=== PATIENT | female | born 1960 | race Caucasian/White ===

== ENCOUNTER 2024-03-11 22:27 | Inpatient (IN) | payer MEDICARE ==
[~2024-03-11] VITALS: Ht 154.9 cm; Wt 90.0 kg
[2024-03-11 23:07] LABS: Hematocrit 30.9 % (33.0-51.0); Hemoglobin 10.2 g/dL (11.5-16.0); Mean Corpuscular HGB 34.3 pg (26.0-34.0); Mean Corpuscular Volume 104 fL (80-100); Mean Platelet Volume 8.9 fL (9.1-12.4); Platelet Count 315 K/mm3 (150-400); RDW Coefficient Variation 13.4 % (11.7-14.2); RDW Standard Deviation 51.2 fL (35.1-46.3); Red Blood Cell Count 2.97 M/mm3 (3.80-5.20); White Blood Cell Count 8.14 K/mm3 (4.00-11.30)
[2024-03-11 23:27] LABS: BAND PERCENT MAN 4 % (0-8); BASOPHILS ABSOLUTE MAN 0.08 K/mm3 (0.00-0.23); BASOPHILS PERCENT MAN 1 % (0-2); EOSINOPHILS PERCENT MAN 0 % (0-6); LYMPHOCYTES ABSOLUTE MAN 0.73 K/mm3 (0.84-5.20); LYMPHOCYTES PERCENT MAN 9 % (21-46); METAMYELOCYTE ABSOLUTE MAN 0.16 K/mm3 (0.00-0.00); METAMYELOCYTE PERCENT MAN 2 % (0-0); MONOCYTES ABSOLUTE MAN 0.73 K/mm3 (0.16-1.47); MONOCYTES PERCENT MAN 9 % (4-13); MYELOCYTE ABSOLUTE MAN 0.08 K/mm3 (0.00-0.00); MYELOCYTE PERCENT MAN 1 % (0-0); NEUTROPHILS ABSOLUTE MAN 6.34 K/mm3 (1.96-9.15); SEG NEUTROPHILS PERCENT MAN 74 % (41-73); TOTAL CELLS COUNTED 100
[2024-03-11 23:31] LABS: Alanine Aminotransfer (ALT/SGP 90 U/L (12-78); Albumin, Blood 2.4 g/dL (3.4-5.0); Albumin/Globulin Ratio 0.7 (0.8-1.8); Alk Phos 80 U/L (50-136); Anion Gap 9 mmol/L (3-11); Aspartate Aminotrans (AST/SGOT 61 U/L (12-37); Bilirubin, Total 0.2 mg/dL (0.1-1.0); Blood Urea Nitrogen 19 mg/dL (8-24); Bun/Creatinine Ratio 16.8 (12.0-20.0); CO2, Blood 28 mmol/L (21-32); Calcium, Blood 8.7 mg/dL (8.5-10.1); Chloride, Blood 105 mmol/L (98-108); Creatinine, Blood 1.13 mg/dL (0.40-1.00); Globulin, Blood 3.6 g/dL (2.2-4.0); Glomerular Filtration Rate 55 (60-); Glucose, Blood 150 mg/dL (70-99); Potassium, Blood 3.8 mmol/L (3.5-5.5); Sodium, Blood 138 mmol/L (136-145)
[2024-03-12] VITALS (7 sets, daily range): BP systolic 104–118; BP diastolic 59–78
[2024-03-12 00:35] LABS: Source, Urine Clean Catch
[2024-03-12 00:45] LABS: Bilirubin, Urine Neg (Neg); Blood, Urine Neg (Neg); Glucose Qualitative, Urine 2+ (Neg); Ketones, Urine Neg (Neg); Leukocyte Esterase, Urine 1+ (Neg); Nitrite, Urine Neg (Neg); Protein, Urine Neg (Neg); Urobilinogen, Urine NORM (Normal)
[2024-03-12 00:56] LABS: Appearance, Urine Clear (Clear); Bacteria Rare /hpf; Color, Urine Pale Yellow (P-Yellow); Red Blood Cells, Urine Not Seen /hpf (0-2); Squamous Epithelial Cells Few /hpf (Few); White Blood Cells, Urine 0-2 /hpf (0-5)
[2024-03-12] MEDS ORDERED: Lactated Ringer's 1,000 ML IV SCH ×3 (02:05→10:35)
[2024-03-12] MEDS ORDERED: FentaNYL Citrate 50 MCG/ML 2 ML Injection IV PRN ×2 (02:40→06:20)
[2024-03-12] MEDS ORDERED: NS 1,000 ML IV SCH (02:40)
[2024-03-12] MEDS ORDERED: Ondansetron HCl 2 MG / ML 2ML Vial IV PRN (02:40)
[2024-03-12] MEDS ORDERED: FLU VACC TS2024-25(6MOS UP)/PF 45 MCG/0.5 ML SYRINGE IM ONE (02:45)
[2024-03-12] MEDS ORDERED: Meropenem 1,000 MG in NS 100 ML IV SCH (02:54)
[2024-03-12 02:58] LABS: CHOL/HDL RATIO 3.6; Cholesterol 152 mg/dL (50-200); HDL Cholesterol 42 mg/dL (>39); LDL/HDL RATIO 1.9; Low Density Lipoprotein Chol 81 mg/dL (0-110); Triglycerides 143 mg/dL (30-160); Very Low Density Lipoprot Chol 28 mg/dL (6-32)
[2024-03-12] MEDS ORDERED: Albumin (Human) 25gm/100ml 100 ML IV ONE (03:00)
[2024-03-12 04:58] LABS: BASOPHILS ABSOLUTE AUTO 0.06 K/mm3 (0.00-0.23); BASOPHILS PERCENT AUTO 1 % (0-2); EOSINOPHILS ABSOLUTE AUTO 0.13 K/mm3 (0.00-0.68); EOSINOPHILS PERCENT AUTO 2 % (0-6); Hematocrit 31.6 % (33.0-51.0); Hemoglobin 10.4 g/dL (11.5-16.0); IMMATURE GRAN PERCENT AUTO 5 % (0-1); LYMPHOCYTES ABSOLUTE AUTO 0.89 K/mm3 (0.84-5.20); LYMPHOCYTES PERCENT AUTO 11 % (21-46); MONOCYTES ABSOLUTE AUTO 0.65 K/mm3 (0.16-1.47); MONOCYTES PERCENT AUTO 8 % (4-13); Mean Corpuscular HGB 34.2 pg (26.0-34.0); Mean Corpuscular HGB Conc 32.9 g/dL (31.5-36.5); Mean Corpuscular Volume 104 fL (80-100); Mean Platelet Volume 8.7 fL (9.1-12.4); NEUTROPHILS ABSOLUTE AUTO 5.96 K/mm3 (1.96-9.15); NEUTROPHILS PERCENT AUTO 74 % (41-73); Platelet Count 296 K/mm3 (150-400); RDW Coefficient Variation 13.3 % (11.7-14.2); RDW Standard Deviation 50.4 fL (35.1-46.3); Red Blood Cell Count 3.04 M/mm3 (3.80-5.20); White Blood Cell Count 8.09 K/mm3 (4.00-11.30)
[2024-03-12] MEDS ORDERED: Ipratropium/Albuterol SulF 2.5-0.5MG/3 ML Amp INH PRN (05:15)
[2024-03-12 05:25] LABS: Albumin, Blood 2.4 g/dL (3.4-5.0); Albumin/Globulin Ratio 0.7 (0.8-1.8); Bilirubin, Total 0.2 mg/dL (0.1-1.0); Bun/Creatinine Ratio 13.3 (12.0-20.0); Calcium, Blood 8.5 mg/dL (8.5-10.1); Creatinine, Blood 1.05 mg/dL (0.40-1.00); Globulin, Blood 3.5 g/dL (2.2-4.0); Potassium, Blood 3.9 mmol/L (3.5-5.5); Total Protein, Blood 5.9 g/dL (6.4-8.2)
--- NOTE | 2024-03-12 06:22 | NUR ---
SHIFT SUMMARY PATIENT IS ALERT AND ORIENTED. PATIENT IS A RECENT ADMIT FROM ED. PATIENT HAS HAD NO ACUTE EVENTS THIS SHIFT. PATIENT HAS REQUIRED NO PAIN MEDS THIS SHIFT, MEDICATED IN ED. PATIENT HAS HAD NO COMPLAINTS OF SOB, NAUSEA OR VOMITTING THIS SHIFT. BED IN LOCKED AND LOWEST POSITION.
--- NOTE | 2024-03-12 07:00 | NUR ---
ASSUMED CARE OF PT- BEDSIDE REPORT COMPLETED WITH NIGHT RN. PT SLEEPING SOUNDLY AT THE TIME OF REPORT, RECIEVED A CALL FROM TELE PT HR AFIB IN THE 30'S. CALLED DR ARAUJO AND RECIEVED AN ORDER FOR AN EKG. LAPIDARY APPRENTICE COMPLETED EKG. CAME TO THE BEDSIDE AT THE TIME OF THE EKG.
--- NOTE | 2024-03-12 09:32 | NUR ---
CALLED DR BABB UNABLE TO REACH, CALLED DR ARAUJO- PT HR VINCENT DOWN TO [address] ARAUJO THE PT HAS A CC/O FEELING LIKE HER BODY IS "TOTALLY EXHAUSTED" SHE STATES SHE FEELS LIKE SHE HAS NO ENERGY. SHE FEELS DRAWN. EARLIER SHE HAD A RATE IN THE LOW 30'S SHE C/O HAVING TROUBLE BREATHING, FEELING LIKE HER CHEST WAS "TIGHT" AND DIFFICULT TO TAKE A DEEP BREATH. CAME TO EVALUATE THE PT AT THAT TIME. THERE IS A SAVED STRIP A 3.15 SECOND PAUSE SHOWING THE RATE AT 29. NOTIFIED, REQUESTED AA CARDIOLOGY CONSULT, NO NEW ORDERS AT THIS TIME.
--- NOTE | 2024-03-12 12:34 | NUR ---
CALLED [facility] TO REQUEST THE PT MEDICATION Hx BE FAXED OVER. THEY ARE PRINTING THE LIST NOW AND WILL FAX IT SOON.
[2024-03-12] MEDS ORDERED: BREO ELLIPTA 11 EAC1 INH (13:01)
[2024-03-12] MEDS ORDERED: Acetaminophen325 M1 PO (13:01)
[2024-03-12] MEDS ORDERED: BUPROPION XL150 M1 PO (13:02)
[2024-03-12] MEDS ORDERED: Cardizem LA240 MG PO (13:03)
[2024-03-12] MEDS ORDERED: BISA10S PR (13:04)
[2024-03-12] MEDS ORDERED: COMBIVENT RESPIM4 G1 INH (13:04)
[2024-03-12] MEDS ORDERED: FARXIGA5 MG PO (13:04)
[2024-03-12] MEDS ORDERED: Furosemide40 MG PO (13:05)
[2024-03-12] MEDS ORDERED: EUTHYROX25 MCG PO (13:06)
[2024-03-12] MEDS ORDERED: IPRAT-ALBUT 0.5-3 ML INH (13:06)
[2024-03-12] MEDS ORDERED: METO50ER PO (13:07)
[2024-03-12] MEDS ORDERED: MONT10T PO (13:07)
[2024-03-12] MEDS ORDERED: PREDNISONE5 M1 PO (13:08)
[2024-03-12] MEDS ORDERED: NICO21TP TOP (13:08)
[2024-03-12] MEDS ORDERED: Revatio20 MG PO (13:09)
[2024-03-12] MEDS ORDERED: WARF5 PO (13:10)
[2024-03-12] MEDS ORDERED: SPIRIVA RESPIMAT4 G3 INH (13:10)
--- NOTE | 2024-03-12 14:36 | NUR ---
MISSED 1000 DOSE OF MEROPENEM- THIS RN SCANNED THE MEDICATION AND HUNG IT AFTER VERIFYING WITH PHA THAT THE MED WAS OK TO RUN PIGGYBACK ON LR. PT C/O IV BEING TOO PAINFUL, MECHANICAL ADJUSTER PLACING A NEW IV, BREAK RN RELIEVED THIS RN. ONCE NEW IV ACCESS WAS ESTABLISHED BREAK RN STARTED THE INFUSION. ROLLER BALL CLAMP WAS NOT OPEN YET. MEDICATION DID NOT INFUSE.
[2024-03-12] MEDS ORDERED: Tiotropium Bromide 2.5 MCG/ACT MIST INHAL (10 ACT/4 GM) INH SCH (14:55)
[2024-03-12 17:11] LABS: International Normalized Ratio 1.52; Prothrombin Time Results 15.8 Sec (9.7-11.5)
[2024-03-12] MEDS ORDERED: Warfarin Sodium 5 MG Tab PO ONE (18:00)
[2024-03-12] MEDS ORDERED: Diltiazem HCl 180 MG Cap.CD PO SCH (18:00)
--- NOTE | 2024-03-12 18:26 | NUR ---
Shift Summary Assumed care of patient at approx 1415, transported from [facility]. Pt 1 person assist to bed. Alert, oriented x4; calm and cooperative with care. Pt reporting pain 6/10 in RUQ/Epigastric, medicated x2 with fentanyl, pt expressed conern with taking fentanyl, educated pt difference between medical grade and other fentanyls. Pt reports SOB with exertion, spo2 >90% on ra, breathing even and unlabored at rest. Abd distended, tender on palp, liquid bm per patient this evening. Tele afib 80-100's since transfer, no bradycardia or pauses noted. Pt used to wear cpap, notified Dr Shay, new orders per . Discussed cardizem order with Dr Luna, holding 360 mg this evening, new orders to give [address] Luna. No other acute changes noted. Will continue to monitor.
[2024-03-12] MEDS ORDERED: dilTIAZem HCL 240 MG CAP.CD PO ONE (19:20)
[2024-03-12] MEDS ORDERED: Montelukast Sodium 10 MG Tab PO SCH (21:00)
--- NOTE | 2024-03-12 23:50 | NUR ---
ASSUMPTION OF CARE THIS RN ASSUMED CARE OF PATIENT AT 1900. PT A&O X4. ABLE TO MAKE NEEDS KNOWN. DYSPNEA WITH EXERTION NOTED. X2 BAGS OF LR INFUSED PER EMAR. AFIB WITH HR 70-90. BP STABLE. DENIES CHEST PAIN/PRESSURE. ON RA WITH SPO2 >92%. CPAP FOR NOC SET UP BY RT. SBA TO BATHROOM. CALLING APPROPRIATELY. BED IN LOWEST POSITION AND CALL LIGHT WITHIN REACH.
[2024-03-13] VITALS (7 sets, daily range): BP systolic 106–127; BP diastolic 57–78
[2024-03-13 04:22] LABS: Hematocrit 31.4 % (33.0-51.0); Hemoglobin 10.1 g/dL (11.5-16.0); Mean Corpuscular HGB 33.9 pg (26.0-34.0); Mean Corpuscular HGB Conc 32.2 g/dL (31.5-36.5); Mean Corpuscular Volume 105 fL (80-100); Mean Platelet Volume 9.2 fL (9.1-12.4); Platelet Count 318 K/mm3 (150-400); RDW Coefficient Variation 13.6 % (11.7-14.2); RDW Standard Deviation 52.4 fL (35.1-46.3); Red Blood Cell Count 2.98 M/mm3 (3.80-5.20); White Blood Cell Count 6.75 K/mm3 (4.00-11.30)
[2024-03-13 04:43] LABS: Albumin, Blood 2.6 g/dL (3.4-5.0); Albumin/Globulin Ratio 0.8 (0.8-1.8); Bilirubin, Total 0.3 mg/dL (0.1-1.0); Bun/Creatinine Ratio 8.3 (12.0-20.0); Calcium, Blood 8.5 mg/dL (8.5-10.1); Creatinine, Blood 0.96 mg/dL (0.40-1.00); Globulin, Blood 3.1 g/dL (2.2-4.0); International Normalized Ratio 1.44; Potassium, Blood 4.1 mmol/L (3.5-5.5); Total Protein, Blood 5.7 g/dL (6.4-8.2)
--- NOTE | 2024-03-13 04:53 | NUR ---
SHIFT SUMMARY SEE PREVIOUS NOTE. NO ACUTE CHANGES OVERNIGHT. PT WEARING CPAP FOR SLEEP. NO PAUSES NOTED ON TELE. AFIB WITH BBB, HR 70-90'S. BP STABLE. DENIED PAIN DURING THIS SHIFT AND WITH CLEAR LIQUID DIET. USING BSC FOR VOIDING. CALLING APPROPRIATELY. BED IN LOWEST POSITION AND CALL LIGHT WITHIN REACH. THIS RN WILL REPORT TO ONCOMING DAYSHIFT RN.
[2024-03-13 05:02] LABS: BAND PERCENT MAN 3 % (0-8); BASOPHILS PERCENT MAN 0 % (0-2); EOSINOPHILS ABSOLUTE MAN 0.06 K/mm3 (0.00-0.68); EOSINOPHILS PERCENT MAN 1 % (0-6); LYMPHOCYTES ABSOLUTE MAN 1.14 K/mm3 (0.84-5.20); LYMPHOCYTES PERCENT MAN 17 % (21-46); METAMYELOCYTE ABSOLUTE MAN 0.06 K/mm3 (0.00-0.00); METAMYELOCYTE PERCENT MAN 1 % (0-0); MONOCYTES ABSOLUTE MAN 0.54 K/mm3 (0.16-1.47); MONOCYTES PERCENT MAN 8 % (4-13); MYELOCYTE ABSOLUTE MAN 0.13 K/mm3 (0.00-0.00); MYELOCYTE PERCENT MAN 2 % (0-0); NEUTROPHILS ABSOLUTE MAN 4.79 K/mm3 (1.96-9.15); SEG NEUTROPHILS PERCENT MAN 68 % (41-73); TOTAL CELLS COUNTED 100
[2024-03-13] MEDS ORDERED: Levothyroxine Sodium 0.025 MG Tab PO SCH (06:00)
[2024-03-13] MEDS ORDERED: Metoprolol Succinate 50 MG TABCR PO SCH (09:00)
[2024-03-13] MEDS ORDERED: BREO ELLIPTA INH SCH (09:00)
[2024-03-13] MEDS ORDERED: Nicotine 21 MG PATCH TOP SCH (09:00)
[2024-03-13] MEDS ORDERED: buPROPion HCL 150 MG TAB.SR.12H PO SCH (09:00)
[2024-03-13] MEDS ORDERED: Miconazole 2% Vaginal Cream 45 GM VAG SCH (10:00)
[2024-03-13] MEDS ORDERED: Sildenafil Citrate 20 MG Tab PO SCH (10:15)
[2024-03-13] MEDS ORDERED: Acetaminophen 325 MG TABLET PO PRN (11:00)
[2024-03-13] MEDS ORDERED: Magnesium Hydroxide Conc 10 ML UDC PO PRN (11:00)
[2024-03-13] MEDS ORDERED: Bisacodyl 10 MG Supp PR PRN (11:00)
[2024-03-13] MEDS ORDERED: Insulin Human Lispro 100 Units/ML 3ML Syringe SC SCH (11:30)
[2024-03-13] MEDS ORDERED: Furosemide 40 MG Tab PO SCH (12:00)
[2024-03-13] MEDS ORDERED: Warfarin Sodium 5 MG Tab PO ONE (18:00)
--- NOTE | 2024-03-13 18:14 | NUR ---
SHIFT SUMMARY A&O X4, ABLE TO MAKE NEEDS KNOWN, OBEYS COMMANDS, SBA TO BRP OR BSC, GENERALIZED WEAKNESS. CONTINUOUS SPO2, SPO2 GREATER THAN 95% ON RA, PT REPORTS SOB THAT WORSENS WITH ACTIVITY, LUNGS SOUND CLEAR AND TIGHT T/O WITH EXPRATORY WHEEZE/RESTARTED HOME MEDICATION PER ORDERS. HR 90-100 S, DENIES CHEST P/P, DID FEEL LIKE HER HEART WAS RACING DURING BRIEF MOMENT SHORTLY AFTER BREAKFAST BUT QUICKLY RESOLVED, ALL VS STABLE, MD MADE AWARE, MILD BLE EDEMA. PT TOLERATING CURRENT DIET WELL, REPORTING FEELINGS OF DISTENTION TO ABD, DENIES FEELINGS OF CONSTIPATION, REPORTS PAIN AND TENDERNESS TO RIGHT UPPER AND LOWER ABD QUADRANT WITH THE UPPER BEING THE WORSET/ MEDICATED PER ORDERS, HAD BM THIS SHIFT. VOIDING INTO BSC, YELLOW URINE, PT DOES REPORT URGENCY WITH VOIDING. REDNESS TO BLE ANKLES/TOES, PT REPORTS THAT NORMAL FOR HER. DR. BERNARDO ROUNDED ON PT THIS AM DR. BERNARDO CALLED BY THIS RN @ 2073 WITH PT REPORTING FEELINGS OF INCREASED THIRST/TREMORS/WEANKESS/DRY EYES/ CBG OF 230/ INCREASED SOB WITH O2 GREATER THAN 95%/ ITCHING FROM TED AREA, NEW ORDERS PLACED. DR. BERNARDO CALLED BY THIS RN @ 1421 FOR PT REQUEST TO RESTART THEIR WATER PILL THEY FELT THEIR LEGS BECOMING MORE SWOLLEN , NEW ORDERS PLACED BY . DR. GTZ TO BEDSIDE THIS AM.
[2024-03-13] MEDS ORDERED: Docusate Sodium 100 MG Cap PO SCH (21:00)
[2024-03-13] MEDS ORDERED: Sennosides 8.6 MG Tab PO SCH (21:00)
[2024-03-13] MEDS ORDERED: dilTIAZem HCL 240 MG CAP.CD PO SCH (21:00)
[2024-03-14] VITALS (7 sets, daily range): BP systolic 93–121; BP diastolic 44–77
[2024-03-14 03:58] LABS: Hematocrit 31.4 % (33.0-51.0); Hemoglobin 10.1 g/dL (11.5-16.0); Mean Corpuscular HGB 33.7 pg (26.0-34.0); Mean Corpuscular HGB Conc 32.2 g/dL (31.5-36.5); Mean Corpuscular Volume 105 fL (80-100); Mean Platelet Volume 8.4 fL (9.1-12.4); Platelet Count 322 K/mm3 (150-400); RDW Coefficient Variation 13.4 % (11.7-14.2); RDW Standard Deviation 51.5 fL (35.1-46.3); White Blood Cell Count 5.84 K/mm3 (4.00-11.30)
[2024-03-14 04:17] LABS: International Normalized Ratio 1.66; Prothrombin Time Results 17.1 Sec (9.7-11.5)
[2024-03-14 04:18] LABS: Albumin, Blood 2.7 g/dL (3.4-5.0); Albumin/Globulin Ratio 0.8 (0.8-1.8); Bilirubin, Total 0.3 mg/dL (0.1-1.0); Calcium, Blood 9.2 mg/dL (8.5-10.1); Creatinine, Blood 1.18 mg/dL (0.40-1.00); Globulin, Blood 3.2 g/dL (2.2-4.0); Magnesium, Blood 1.8 mg/dL (1.6-2.4); Phosphorus, Blood 3.6 mg/dL (2.5-4.9); Potassium, Blood 4.5 mmol/L (3.5-5.5); Total Protein, Blood 5.9 g/dL (6.4-8.2)
[2024-03-14 04:19] LABS: BAND PERCENT MAN 4 % (0-8); BASOPHILS ABSOLUTE MAN 0.11 K/mm3 (0.00-0.23); BASOPHILS PERCENT MAN 2 % (0-2); EOSINOPHILS PERCENT MAN 0 % (0-6); LYMPHOCYTES ABSOLUTE MAN 0.99 K/mm3 (0.84-5.20); LYMPHOCYTES PERCENT MAN 17 % (21-46); MONOCYTES ABSOLUTE MAN 0.23 K/mm3 (0.16-1.47); MONOCYTES PERCENT MAN 4 % (4-13); MYELOCYTE ABSOLUTE MAN 0.29 K/mm3 (0.00-0.00); MYELOCYTE PERCENT MAN 5 % (0-0); SEG NEUTROPHILS PERCENT MAN 68 % (41-73); TOTAL CELLS COUNTED 100
--- NOTE | 2024-03-14 04:54 | NUR ---
SHIFT SUMMARY. SHIFT HAS BEEN UNREMARKABLE. PT AOX4, PLEASANT, COOPERATIVE, ABLE TO MAKE NEEDS KNOWN. HAS BEEN ABLE TO REST COMFORTABLY THROUGHOUT MOST OF SHIFT. HAS WORN CPAP WHILE SLEEPING THROUGHOUT MOST OF SHIFT. PAIN HAS BEEN ADEQUATELY MANAGED VIA EMAR. PT OCCASIONALLY REPORTS SOB WITH MOVEMENT OR TRANSFER BUT OVERALL HAS DONE WELL WITH SATS MAINTAINING >90%. CONTINUES TO RUN AFIB ON TELE. STEADY 1PA TRANSFER TO BATHROOM. BED LOCKED IN LOWEST POSITION. CALL LIGHT LEFT WITHIN REACH. CONTINUING TO MONITOR.
[2024-03-14] MEDS ORDERED: Polyethylene Glycol 3350 17 gm PO SCH (09:00)
[2024-03-14] MEDS ORDERED: Furosemide 40 MG Tab PO SCH (09:00)
[2024-03-14] MEDS ORDERED: Acetaminophen 325 MG TABLET PO PRN (11:35)
[2024-03-14] MEDS ORDERED: HYDROcodone 5-APAP 325 TAB PO PRN ×2 (11:35→17:15)
[2024-03-14 13:43] LABS: Bun/Creatinine Ratio 9.5 (12.0-20.0); Calcium, Blood 8.6 mg/dL (8.5-10.1); Creatinine, Blood 1.37 mg/dL (0.40-1.00); Potassium, Blood 4.6 mmol/L (3.5-5.5)
[2024-03-14] MEDS ORDERED: Warfarin Sodium 7.5 MG Tab PO ONE (18:00)
--- NOTE | 2024-03-14 18:12 | NUR ---
SUMMARY- PT A/O X4, INDEPENDANT TO BATHROOM, STEADY ON FEET. PT HAS INTERMITTANT RUQ ABD PAIN DESCRIBED DEEP PRESURE. FENT IV EFFECTIVE. CHANGED TO NORCO 5MG WITH GOOD EFFECT. PT REQUIRED DOSE BEFORE 6 HOURS, CALLED DR MEDINA AND CHANGED FREQ Q4. TELE A FIB THIS AM 80-90'S. AFIBRILE, LUNGS CLEAR, OCC WHEEZE. ROUTINE NEB TX HELPFUL. MILD DYSPNEA WITH ACTIVITY WHICH LIMITS ACTIVITY. PHYSICAL THERAPY ASSESSED PT AND MADE RECOMMENDATIONS. BP MARGIONALLY LOWER THIS PM, DR ARAUJO MADE ADJUSTMENTS AND DC'D LASIX AND 500ML LR ORDER. PT STATES OCC SHE FEELS A WAVE OF FEELING "UNWELL, RACING HEART AND VERY THIRSTY" STATED THIS SENSATION CAME OVER HER BEFORE DINNER. BUT HAS SUBSIDED. BLOOD SUGARS AC/HS WITH SSI COVERAGE BREAKFAST AND LUNCH. PT TOLERATING FOOD AND FLUID. DENIES NAUSEA, DENIES FOOD MAKES ANY DIFFERENCE IN PAIN OCCURANCE. WILL REPORT TO BENITA SCHAEFER.
[2024-03-14] MEDS ORDERED: Lactated Ringer's 500 ML IV SCH (18:30)
--- NOTE | 2024-03-14 23:02 | NUR ---
TRANSFER PT TRANSFERED TO ROOM 305. REPORT GIVEN TO JESUS. PT A/O X4 AND ABLE TO MAKE HER NEEDS KNOWN. ALL BELONGINGS SENT WITH PT. SPO2 >95% ON RA. TELE SHOWS AFIB WITH RATE 70-80'S. PRN NORCO GIVEN FOR ABD PAIN. AMBULATING INDEPENDENTLY IN ROOM.
--- NOTE | 2024-03-14 23:19 | NUR ---
PT ARRIVED TO MEDICAL FLOOR VIA BED IN STABLE CONDITION. REPORTS RUQ ABD PAIN OF 4-5/10, JUST RECIEVED PAIN MEDS FROM COUNSELING CENTER MANAGER. DENIES NEED FOR ANYTHING ELSE AT THIS TIME. BS WAS 181. TELE AFIB 80'S. AGREE WITH PREVIOUS NURSES ASSESSMENT. NO OTHER APPARENT SIGNS OF DISTRESS. CALL LIGHT IS IN REACH.
--- NOTE | 2024-03-15 00:44 | NUR ---
0030 PT LYING IN BED, EYES CLOSED, APPEARS TO BE RESTING. BREATHING IS EVEN, UNLABORED. CPAP IS IN PLACE. CONT. BIOX IS ON. NO APPARENT SIGNS OF DISTRESS. CALL LIGHT IS IN REACH.
[2024-03-15 03:55] VITALS: BP 93/60
--- NOTE | 2024-03-15 04:55 | NUR ---
0230 PT LYING IN BED, EYES CLOSED, APPEARS TO BE RESTING. BREATHING IS EVEN, UNLABORED. NO APPARENT SIGNS OF DISTRESS. CPAP IN PLACE, CONT. BIOX IS ON. CALL LIGHT IS IN REACH.
--- NOTE | 2024-03-15 04:56 | NUR ---
PT IS AAO X 4, ON RA. USES CPAP AT NIGHT. REPORTS RUQ ABD PAIN, GOT NORCO. DENIED NAUSEA. LAST BS 181. TELE AFIB 80'S. REPORTS SOB THAT INCREASES WITH EXERTION, ON RA AT 95%.
--- NOTE | 2024-03-15 04:56 | NUR ---
0430 PT UP TO BATHROOM. DENIES NEED FOR ANYTHING AT THIS TIME. NO APPARENT SIGNS OF DISTRESS. CALL LIGHT IN BATHROOM IN REACH.
[2024-03-15 05:13] LABS: International Normalized Ratio 2.68; Prothrombin Time Results 26.7 Sec (9.7-11.5)
[2024-03-15 05:18] LABS: Bun/Creatinine Ratio 12.1 (12.0-20.0); Calcium, Blood 8.5 mg/dL (8.5-10.1); Creatinine, Blood 1.32 mg/dL (0.40-1.00); Potassium, Blood 4.5 mmol/L (3.5-5.5)
--- NOTE | 2024-03-15 06:15 | NUR ---
0530 PT LYING IN BED, APPEARS TO BE RESTING. WAKES EASILY TO VERBAL STIMULI. SILVANO EDMOND ASSISTED BY GIVING THE PT HER 0600 MED, PT NOT HAPPY TO BE WOKEN UP. NO OTHER APPARENT SIGNS OF DISTRESS. CALL LIGHT IS IN REACH. NO OTHER CHANGES THIS SHIFT.
[2024-03-15 07:34] VITALS: BP 103/60
--- NOTE | 2024-03-15 07:47 | NUR ---
AM NOTE ASSUMED CARE OF PATIENT AT APPROX. 0700. PATIENT IN BED WATCHING TV. PATIENT EAGER TO GO HOME, HOPES IT WILL BE TODAY. PATIENT IS A&OX4. PATIENT IS IND/SBA IN THE ROOM. CALL LIGHT IN REACH.
[2024-03-15 10:24] VITALS: BP 99/67
[2024-03-15] MEDS ORDERED: Empagliflozin 10 MG TAB PO SCH (11:00)
[2024-03-15 13:23] LABS: Bun/Creatinine Ratio 14.5 (12.0-20.0); Calcium, Blood 8.9 mg/dL (8.5-10.1); Creatinine, Blood 1.1 mg/dL (0.40-1.00); Potassium, Blood 4.3 mmol/L (3.5-5.5)
--- NOTE | 2024-03-15 14:10 | NUR ---
UPDATE PATIENT ENCOURAGED TO BE UP IN A CHAIR FOR MEALS. PATIENT IS IND IN THE ROOM. PATIENT STARTED ON JARDIANCE, EDUCATION DONE WITH PATIENT ABOUT NEW MEDICATION. PATIENT EATING AND DRINKING WELL. PATIENT EAGER TO GO HOME.
[2024-03-15 14:38] VITALS: BP 114/69
[2024-03-15] MEDS ORDERED: Furosemide 40 MG Tab PO SCH (16:30)
[2024-03-15 16:46] VITALS: BP 105/73
--- NOTE | 2024-03-15 17:11 | NUR ---
UPDATE PATIENT REPORTED URGENCY WHEN ATTEMPTING TO URINATE. PATIENT ALSO REPORTS GENERAL FEELING OF UNWELL. VITALS TAKEN, WNL. BLOOD SUGAR 187. DR. ALVA NOTIFIED, ORDER FOR BLADDER SCAN AND UA. BLADDER SCAN NEGATIVE FOR RETENTION. PATIENT IND IN ROOM. NEW HAT PLACED IN BATHROOM AND PATIENT INSTRUCTED FOR NEED FOR URINE SAMPLE. IN ROOM. ORDER FOR MARIA DEL ROSARIO HOSE. THIS RN PLACED MARIA DEL ROSARIO HOSE ON PATIENT.
[2024-03-15] MEDS ORDERED: PredniSONE 20 MG Tab PO SCH (18:00)
[2024-03-15] MEDS ORDERED: Warfarin Sodium 5 MG Tab PO SCH (18:00)
[2024-03-15] MEDS ORDERED: Apixaban 5 MG Tab PO SCH (18:00)
--- NOTE | 2024-03-15 18:11 | NUR ---
TAKING OVER PT CARE TILL END OF SHIFT. NO CHANGES WITH PT
[2024-03-15 19:43] VITALS: BP 118/68
[2024-03-16 02:05] VITALS: BP 103/70
--- NOTE | 2024-03-16 04:17 | NUR ---
SHIFT SUMMARY NO ACUTE EVENTS DURING THIS SHIFT. UA UNCOLLECTED. HAT IN THE TOILET. PT IS AWARE. HS B. HS SNACKS PROVIDED PER PT REQUEST. PT REPORTS INCREASED APPETITE D/T PREDNISONE. PRN PO NORCO 5/325MG ADMINISTERED X2 DURING THIS SHIFT. PT REPORTS 5-6/10 RUQ PAIN. BIPAP DURING NIGHT HRS, CONTINUOUS PULSE OX>97% ON RA. PT IS INDEPENDENT WITHIN THE HOSPITAL ROOM, AND REQUESTED THAT STAFF WOULD ENTER THE ROOM FEW TIMES POSSIBLE D/T LACK OF REST. PT REPORTS HER HOME MEDICATION REGIMEN IS TAKING ALL HER MEDICATIONS AT ONCE AT HS. BED AT THE LOWEST POSITION, CALL LIGHT W/I REACH.
--- NOTE | 2024-03-16 06:25 | NUR ---
@6626 THIS NURSE RECEIVED A PHONE CALL FROM . PER , PT NEEDS A ZIO PATCH PLACED BEFORE DISCHARGING @ 1100 AND GOING HOME TO [place], [place]. PT IS GETTING A RIDE TO HOME. WILL PASS THIS INFORMATION TO DAY SHIFT NURSE.
[2024-03-16 06:45] LABS: Bun/Creatinine Ratio 19.2 (12.0-20.0); Calcium, Blood 8.8 mg/dL (8.5-10.1); Creatinine, Blood 1.3 mg/dL (0.40-1.00); Potassium, Blood 5.4 mmol/L (3.5-5.5)
[2024-03-16 06:54] LABS: International Normalized Ratio 2.46; Prothrombin Time Results 24.6 Sec (9.7-11.5)
[2024-03-16 06:57] LABS: Source, Urine Clean Catch
[2024-03-16] MEDS ORDERED: Apixaban 5 MG Tab PO SCH (07:00)
[2024-03-16 07:02] LABS: Appearance, Urine Clear (Clear); Bilirubin, Urine Neg (Neg); Blood, Urine Neg (Neg); Color, Urine Yellow (P-Yellow); Glucose Qualitative, Urine 4+ (Neg); Ketones, Urine Neg (Neg); Leukocyte Esterase, Urine 1+ (Neg); Nitrite, Urine Neg (Neg); Protein, Urine Neg (Neg); Urobilinogen, Urine NORM (Normal)
[2024-03-16 07:08] LABS: Bacteria Few /hpf; Red Blood Cells, Urine 0-2 /hpf (0-2); Squamous Epithelial Cells Few /hpf (Few); Yeast/Fungi Urine Few /hpf
[2024-03-16 07:26] VITALS: BP 94/52
[2024-03-16] MEDS ORDERED: Lactated Ringer's 250 ML IV SCH (08:00)
[2024-03-16 09:21] LABS: Bun/Creatinine Ratio 22.5 (12.0-20.0); Creatinine, Blood 1.11 mg/dL (0.40-1.00)
[2024-03-16] MEDS ORDERED: ELIQUIS5 M2 PO (10:32)
--- NOTE | 2024-03-16 11:21 | NUR ---
Pt was discharged with a taxi service. pt had no questions or concerns with d/c paper work. new scripts faxed to [facility]
== END 2024-03-16 11:09 | disposition home health service (06) | DRG 439 ==
LOC: ER 22:27 → PCU 03-12 02:39 → MEDS 03-12 02:39 → ERHOLD 03-12 02:39 → MEDS 03-12 05:00 → PCU 03-12 14:22 → MEDS 03-14 22:56
PROVIDERS: Family Medicine; Student in an Organized Health Care Education/Training Program; ADMIT Internal Medicine
PROC: 5A09357 Assistance with Respiratory Ventilation, Less than 24 Consecutive Hours, Continuous Positive Airway Pressure (ICD-10-PCS; principal; 2024-03-12)
PROC: 30233J1 Transfusion of Nonautologous Serum Albumin into Peripheral Vein, Percutaneous Approach (ICD-10-PCS; 2024-03-12)
DX: K85.91 Acute pancreatitis with uninfected necrosis, unspecified (principal); I42.8 Other cardiomyopathies; I48.21 Permanent atrial fibrillation; J44.1 Chronic obstructive pulmonary disease with (acute) exacerbation; N17.9 Acute kidney failure, unspecified; I50.42 Chronic combined systolic (congestive) and diastolic (congestive) heart failure; I27.20 Pulmonary hypertension, unspecified; E11.9 Type 2 diabetes mellitus without complications; G47.33 Obstructive sleep apnea (adult) (pediatric); F32.A Depression, unspecified; I44.7 Left bundle-branch block, unspecified; M32.9 Systemic lupus erythematosus, unspecified; E03.9 Hypothyroidism, unspecified; R00.1 Bradycardia, unspecified; I11.0 Hypertensive heart disease with heart failure; T50.905A Adverse effect of unspecified drugs, medicaments and biological substances, initial encounter; Z87.891 Personal history of nicotine dependence; Z79.01 Long term (current) use of anticoagulants; Z88.0 Allergy status to penicillin; Z91.018 Allergy to other foods; Z91.048 Other nonmedicinal substance allergy status; Z90.49 Acquired absence of other specified parts of digestive tract; Z79.899 Other long term (current) drug therapy; Z79.891 Long term (current) use of opiate analgesic; Z79.52 Long term (current) use of systemic steroids; Z79.84 Long term (current) use of oral hypoglycemic drugs; Z87.09 Personal history of other diseases of the respiratory system; Z79.890 Hormone replacement therapy
CPT/HCPCS: 36415; 71045; 74177; 76705; 80048; 80053; 80061; 81001; 82947; 83605; 83690; 83735; 83880; 84100; 84484; 85025; 85610; 93005; 93010; 93246; 93306; 94640; 94660; 94664; 94760; 94762; 97110; 97161; 97165; 97530; 97535; 99285-25; A9270; J2185; J3010; J7120; J7512; P9047; Q9967